=== PATIENT | female | born 1945 | race Caucasian/White ===

== ENCOUNTER 2018-02-23 08:51 | Day surgery (SDC) | payer MEDICARE, SELFPAY ==
[2018-02-23] VITALS (13 sets, daily range): BP systolic 139–188; BP diastolic 75–103; PULSE 72–90; RESP 15–20; TEMP 36.6–37; O2SAT 96–100; BMI 28.2
--- NOTE | 2018-02-23 | DI.CT.S_ITS ---
PROCEDURE: CT BIOPSY LUNG LT Sedation analgesia for 15 minutes. INDICATIONS: LUNG MASS TECHNIQUE: The indications, alternatives, benefits, risks, and possible complications of the procedure were communicated to the patient. Informed written consent from the patient was obtained and placed in the chart. Continuous EKG and hemodynamic monitoring was started by trained personnel. The patient was brought to the CT suite and security guard dispatcher spiral CT imaging was performed with localization grid. The appropriate site for percutaneous access to the biopsy target was marked, was prepped and draped sterilely, and was infused with local anaesthesia. Under CT guidance, a core biopsy trocar and needle set was advanced to the biopsy target, and specimen(s) were obtained. The trocar and needle were then removed, and the patient was sent for post-procedure monitoring. COMPARISON: Outside Facility, RG, CT THORAX WITH CONTRAST, 02/07/2018, 9:37. FINDINGS: Biopsy site: Left upper lobe mass Needle: 20 gauge biopsy needle with introducer trocar. Number of passes: 6, 4 for cytology and 2 for culture Medications: 1% lidocaine for local anaesthesia. IV Fentanyl and Versed for conscious sedation for 15 minutes (see nursing record). Complications: None. Post biopsy CT imaging revealed no pneumothorax or excessive hemorrhage. A 2 hour delayed chest x-ray is pending. IMPRESSION: Successful CT-guided biopsy of left upper lobe mass. Note: Outside imaging showed the mass to measure 5.3 x 8.2 cm in diameter and a direct anterior approach appeared possible. On current imaging however the mass is smaller measuring 5.0 x 5.3 cm and a central cavitation has developed. This raises the possibility of infection rather than malignancy although both etiologies are possible. Sampling therefore was divided between cores for histopathology and cores for culture and sensitivity. Because of the smaller size, a more lateral approach was required complicated by ample breast tissue. In order to minimize penetration of breast tissue, patient was placed in the right lateral decubitus position for the biopsy. Dictated by: Pee aSndhu M.D. on 02/23/2018 at 11:48 Approved by: Pee Sandhu M.D. on 02/23/2018 at 11:58
--- NOTE | 2018-02-23 | PATH_ITS ---
[facility] Accession Number: [id number] . 01 Material submitted: . LUNG MASS . 02 Diagnosis: Lung, Mass, Core Needle Biopsies: Invasive adenocarcinoma, solid pattern, with pulmonary immunophenotype. Please see comment. MRV/02/27/2018 . 02 Comment: As part of routine quality assurance/r&d lab technician, Dr. Varghese also reviewed this case and agrees with the diagnosis. Molecular studies will be performed and the results reported as an addendum. Dr. Valentin called [facility] to discuss results on 02/26/2018. . 02 Electronically signed: . Tessa Valentin MD, Pathologist NPI- [id number] . 01 Gross description: . Received one formalin-filled container labeled with the patient's name and designated lung mass needle core. Scraped from friable Telfa paper are four 0.1 cm to less than 0.1 cm, cylindrical-shaped portions of tissue that range in length from 0.2 cm to 0.5 cm. Entirely submitted in one cassette. ([id number]) /FRR . 02 Microscopic: . Immunohistochemical stains were performed to characterize the cells of interest. All control stains showed appropriate reactivity. . RESULTS: Cytokeratin 7: Uniformly positive. Cytokeratin 20: Negative. TTF1: Uniformly positive. Napsin A: Uniformly positive. . 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 . * This test was developed and its performance characteristics determined by [facility]. It has not been cleared or approved by the U.S. Food and Drug Administration. The FDA has determined that such clearance or approval is not necessary. This test is used for clinical purposes. It should not be regarded as investigational or for research. . 02 Pathologist provided ICD-10: C34.90 . 02 CPT . 971257, L26809, [id number] Performed at: 01 [facility] [address] [place] [address], [place], [place] [id number] MD Roge Pisano MD Phone: [phone] Performed at: [address] [facility] [id number] [place], [place] [id number] MD Armando Vaughn MD Phone: [phone]
[2018-02-23 09:56] LABS: Prothrombin Time 11.1 SECONDS (10.1-12.7)
[2018-02-23 09:58] LABS: PTT Partial Thromboplastin Tim 30 SECONDS (26.4-36.2)
[2018-02-23] MEDS: MIDAZOLAM 2 MG/2 ML VIAL 1 MG IV (11:41)
[2018-02-23] MEDS: fentaNYL 100 MCG/2 ML INJ 50 MCG IV (11:42)
--- NOTE | 2018-02-23 12:05 | SUR.PHASEII ---
1156 Pt coughed up light pink sputum. Bp 171/89, o2 sat 97%RA. Denied sob or chest pain. Lungs clear. Dr Sandhu notified bp elevated up to 180s and pink sputum. Reviewed todays vitals with . No new orders.
--- NOTE | 2018-02-23 12:09 | SUR.PHASEII ---
addendum: 1105 Pt denied pain. Bandaid CDI.
--- NOTE | 2018-02-23 13:00 | DI.RAD.S_ITS ---
PROCEDURE: XR CHEST 1V INDICATIONS: status post lung biopsy TECHNIQUE: One view of the chest was acquired. COMPARISON: None. FINDINGS: Surgical changes and devices: None. Lungs and pleura: No pleural effusions or pneumothorax. Mass lesion left upper lobe recently biopsied. Mediastinum: Mediastinal contours appear normal. Heart size is normal. Bones and chest wall: No suspicious bony lesions. Overlying soft tissues appear unremarkable. IMPRESSION: 1. No pneumothorax post left lung biopsy. 2. Large left upper lobe mass lesion, histopathology and cultures pending. Dictated by: Pee Sandhu M.D. on 02/23/2018 at 13:27 Approved by: Pee aSndhu M.D. on 02/23/2018 at 13:29
== END 2018-02-23 13:30 ==
LOC: OR 08:53
PROVIDERS: Specialist; PCP Physician Assistant Medical; Visit Provider Physician Assistant Medical
PROC: BB24ZZZ Computerized Tomography (CT Scan) of Bilateral Lungs (ICD-10-PCS; CPT 32408; principal; 2018-02-23 10:00)
DX: C34.90 Malignant neoplasm of unspecified part of unspecified bronchus or lung (principal); E11.9 Type 2 diabetes mellitus without complications; Z77.22 Contact with and (suspected) exposure to environmental tobacco smoke (acute) (chronic)
CPT/HCPCS: 32405; 36415; 71045; 77012; 85610; 85730; 87070; 87075; 87077; 87186; 87205; 88305; 88341; 88342; J2250; J3010

== ENCOUNTER → 2024-04-30 10:06 | Outpatient (CLI) | payer MEDICARE, OTHER, SELFPAY ==
--- NOTE | 2024-04-30 | DI.NM.S_ITS ---
PROCEDURE: NM BONE SCAN WHOLE BODY RADIOPHARMACEUTICAL: 22 mCi Tc-99m MDP IV. 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 Anterior and posterior views were acquired from vertex to feet. Additional left and right oblique views of the chest were obtained. COMPARISON: None. FINDINGS: Radiotracer uptake in the left hip and right shoulder, presumably degenerative. Linear uptake in the anterior left 5th, 6th and 7th ribs. IMPRESSION: Linear uptake in the anterior left 5th through 7th ribs, presumably from recent injury. Correlate with history. Radiotracer uptake in the left hip and right shoulder, presumably degenerative. Dictated by: Rohan Solis M.D. on 04/30/2024 at 15:10 Approved by: Rohan Solis M.D. on 04/30/2024 at 15:14
== END ==
LOC: NUCM 10:10
PROVIDERS: Referring Provider Internal Medicine; Visit Provider Internal Medicine
DX: C50.111 Malignant neoplasm of central portion of right female breast (principal); Z17.0 Estrogen receptor positive status [ER+]; R74.8 Abnormal levels of other serum enzymes
CPT/HCPCS: 78306; A9503